=== PATIENT | male | born 1960 | race Caucasian/White ===

== ENCOUNTER 2018-12-28 14:02 | Emergency (ER) | payer OTHER ==
--- NOTE | 2018-12-28 14:03 | EDPHY ---
H & P Time Seen by Provider: 12/28/18 14:03 - Medical/Surgical History Hx Asthma: No Hx Chronic Respiratory Disease: No Hx Diabetes: No Hx Cardiac Disease: No Hx Renal Disease: No Hx Cirrhosis: No Hx Alcoholism: No Hx HIV/AIDS: No Hx Splenectomy or Spleen Trauma: No Other PMH: ANXIETY, bipolar 2 - Social History Smoking Status: Never smoked Allergies/Adverse Reactions: No Known Allergies Allergy (Verified 05/25/18 13:22) Home Medications: Medication Instructions Recorded Divalproex ER [Depakote ER 500 MG 1,500 mg PO DAILY 30 Days #90 tab 05/15/18 (*)] risperiDONE [Risperdal] 1 mg PO DAILY 30 Days #90 tablet 05/15/18 Medical Decision Making ED Course/Re-evaluation: CHIEF COMPLAINT: Hit head on tree branch HISTORY OF PRESENT ILLNESS: The patient is a 58 y/o male arriving via EMS complaining of hitting his head on a tree branch. He hit his right hoahaoism on the tree, but denies loss of consciousness. However, he currently feels lightheaded. He does have numerous psychiatric illnesses, for which he takes his medications as prescribed. No fever, headache, body aches, chest pain, heart palpitations, shortness of breath , cough, abdominal pain, urinary or bowel complaints, numbness, paresthesias. REVIEW OF SYSTEMS: A comprehensive 10 system review of systems is otherwise negative aside from elements mentioned in the history of present illness and medical decision making. PHYSICAL EXAM: HR, BP, O2 Sat, RR. Temp noted General Appearance: Alert, well hydrated, appropriate, and non-toxic appearing. Head: Atraumatic without scalp tenderness or obvious injury Eyes: Pupils equal, round, reactive to light and accommodation, EOMI, no trauma , no injection. Ears: Clear bilaterally, no perforation, normal landmarks Nose: Atraumatic, no rhinorrhea, clear. Throat: There is no erythema or exudates, no lesions, normal tonsils, mucus membranes moist. Neck: Supple, 2+ carotid upstroke, nontender, no lymphadenopathy. Respiratory: No retractions, no distress, no wheezes, and no accessory muscle use. Lungs are clear to auscultation bilaterally. Cardiovascular: Regular rate and rhythm, no murmurs, rubs, or gallops. Bilateral carotid, radial, dorsalis pedis, and posterior tibial pulses intact. Good capillary refill all extremities. Gastrointestinal: Abdomen is soft, nontender, non-distended, no masses, no rebound, no guarding, no peritoneal signs. Musculoskeletal: Normal active ROM of all extremities, atraumatic. Neurological: Alert, appropriate, and interactive. The patient has normal DTRs and non-focal cranial nerves, motor, sensory, and cerebellar exam. Skin: No rashes, good turgor, no nodules on palpation. Past medical history: Anxiety, bipolar, schizoaffective Past surgical history: Denies Family history: Denies Social history: Originally from [place], not employed, single DIAGNOSTICS/PROCEDURES/CRITICAL CARE TIME: Not indicated. DIFFERENTIAL DIAGNOSIS: The differential diagnosis for the patient's head injury included but was not limited to concussion, skull fracture, intra-parenchymal contusion, subarachnoid , subdural and epidural hematoma. MEDICAL DECISION MAKING: The patient is a 58 y/o male arriving via EMS presenting with hitting his right hoahaoism on a tree branch. Currently he feels lightheaded. He has a normal physical exam including no hemotympanum, no abrasions, and normal pupillary reaction. He does not meet [place] [facility] requirements and is comfortable with having no laboratory or imaging studies performed. I have advised him to follow post-concussive precautions. Return precautions provided; patient is comfortable with this plan. Departure - Departure Disposition: Home, Routine, Self-Care Clinical Impression: Head injury Qualifiers: Encounter type: initial encounter Qualified Code(s): S09.90XA - Unspecified injury of head, initial encounter Concussion Qualifiers: Encounter type: initial encounter Loss of consciousness presence/duration: without LOC Qualified Code(s): S06.0X0A - Concussion without loss of consciousness, initial encounter Condition: Good Instructions: Concussion (ED), Head Injury (ED) Additional Instructions: 1. Apply ice to sore areas and take 600mg ibuprofen every 6-8 hours or 650mg Tylenol every 4-6 hours for pain for the next few days. 2. Cognitive rest while symptoms are present. Avoid screen time including TV, phones, and computers until symptoms improve. 3. Physical rest while symptoms are present. Avoid any activities that could put you at further risk for a head injury until your symptoms resolve including contact sports, bicycling, etc. This may be 2 weeks or longer. 4. Follow up with Dr. Anaya, head injury specialist, for unimproved symptoms over the next 10-14 days. It's not uncommon to experience fatigue, mood swings, and difficulty concentrating with concussions. 5. Return to the ED for severe headache, weakness or numbness on one side of your body, vision changes, or other worsening of condition. Referrals: [facility],. [Clinic] - As per Instructions Mariposa Anaya MD [Medical Doctor] - As per Instructions Report Scribed for: Aj Yeager Report Scribed by: Emily Dowell Date of Report: 12/28/18 Time of Report: 14:03
[2018-12-28 14:16] VITALS: BP 129/75
== END 2018-12-28 14:16 | disposition home or self-care (01) ==
LOC: EDUNIT#
DX: S06.0X0A Concussion without loss of consciousness, initial encounter (principal); F31.9 Bipolar disorder, unspecified; W22.8XXA Striking against or struck by other objects, initial encounter; Y92.828 Other wilderness area as the place of occurrence of the external cause